=== PATIENT | male | born 1965 | race Two or more races ===

== ENCOUNTER 2017-03-06 08:37 | Emergency (ER) | payer OTHER ==
[2017-03-06] MEDS ORDERED: PROPARACAINE 0.5% 15 ML OPHT DROP ONE (08:48)
[2017-03-06] MEDS ORDERED: FLUORESCEIN SODIUM 1 MG STRIP OP ONE (08:48)
--- NOTE | 2017-03-06 08:48 | EDPHY ---
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 This happened 3 days ago. He did irrigate them at the time but has had persistent pain in the left worse than the right. No vision changes. No discoloration. Denies other injuries. He does not know what the cleaning solution was. REVIEW OF SYSTEMS: Constitutional: denies: chills, fever, recent illness, recent injury EENTM: See HPI Respiratory: denies: cough, shortness of breath Cardiac: denies: chest pain, irregular heart rate, lightheadedness, palpitations Gastrointestinal/Abdominal: denies: abdominal pain, diarrhea, nausea, vomiting, blood streaked stools Genitourinary: denies: dysuria, frequency, hematuria, pain Musculoskeletal: denies: joint pain, muscle pain Skin: denies: lesions, rash, jaundice, bruising Neurological: denies: headache, numbness, paresthesia, tingling, dizziness, weakness Hematologic/Lymphatic: denies: blood clots, easy bleeding, easy bruising Immunologic/allergic: denies: HIV/AIDS, transplant EXAM: GENERAL: Well-appearing, well-nourished and in no acute distress. HEAD: Atraumatic, normocephalic. EYES: See diagram ENT: TMs normal, nares patent, oropharynx clear without exudates. Moist mucous membranes. NECK: Normal range of motion, supple without lymphadenopathy or JVD. LUNGS: Breath sounds clear to auscultation bilaterally and equal. No wheezes rales or rhonchi. HEART: Regular rate and rhythm without murmurs, rubs or gallops. ABDOMEN: Soft, nontender, normoactive bowel sounds. No guarding, no rebound. No masses appreciated. BACK: No CVA tenderness, no spinal tenderness, step-offs or deformities EXTREMITIES: Normal range of motion, no pitting or edema. No clubbing or cyanosis. NEUROLOGICAL: Cranial nerves II through XII grossly intact. Normal speech, normal gait. 5/5 strength, normal movement in all extremities, normal sensation PSYCH: Normal mood, normal affect. SKIN: Warm, dry, normal turgor, no visible rashes or lesions. Source: Patient, Family Exam Limitations: Language barrier (Family interpreting) - Medical/Surgical History Hx Asthma: No Hx Chronic Respiratory Disease: No Hx Diabetes: No Hx Cardiac Disease: No Hx Renal Disease: No Hx Cirrhosis: No Hx Alcoholism: No - Family History Significant Family History: No pertinent family hx - Social History Smoking Status: Never smoked Drug Use: None Constitutional: Initial Vital Signs Temperature (C) 36.3 C 03/06/17 08:55 Heart Rate 95 03/06/17 08:55 Respiratory Rate 18 03/06/17 08:55 Blood Pressure 159/96 H 03/06/17 08:55 O2 Sat (%) 96 03/06/17 08:55 O2 Delivery Mode Room Air Allergies/Adverse Reactions: No Known Allergies Allergy (Unverified 03/06/17 08:53) Home Medications: Medication Instructions Recorded Amlodipine Besylate 03/06/17 Ofloxacin 0.3% [Ocuflox 0.3%] 2 drops OP QID #1 opht.btl 03/06/17 ED Images - Head Eyes Right/Left: 1 - Mild burn 2 - Mild burn 3 - Mild burn Medical Decision Making ED Course/Re-evaluation: The patient has mild caballero to both cornea. They did not appear to involve the central visual axis. I will start him on antibiotic drops and have him follow up with Ophthalmology. I instructed him not were contacts. He understands and agrees with this plan. His family has been interpreting and they declined phone site interpreter. Differential Diagnosis: Partial list of the Differential diagnosis considered include but were not limited to; corneal abrasion, corneal burn and although unlikely based on the history and physical exam, I also considered foreign body, infection, iritis. I discussed these differential diagnoses and the plan with the patient as well as the usual and expected course. The patient understands that the diagnosis is provisional and that in medicine we are not always correct and that further workup is often warranted. Usual and customary warnings were given. All of the patient's questions were answered. The patient was instructed to return to the emergency department should the symptoms at all worsen or return, otherwise to followup with the physician as we discussed. Departure - Departure Disposition: Home, Routine, Self-Care Clinical Impression: Corneal chemical burn Qualifiers: Encounter type: initial encounter Laterality: unspecified laterality Qualified Code(s): T26.60XA - Corrosion of cornea and conjunctival sac, unspecified eye, initial encounter Condition: Fair Instructions: Chemical Eye Caballero (ED) Referrals: UNKNOWN,UNKNOWN [Other] - As per Instructions Sandor Bass MD [Medical Doctor] - 2-3 days, call for appt. Prescriptions: Ofloxacin 0.3% [Ocuflox 0.3%] 2 drops OP QID #1 opht.btl
[2017-03-06 08:58] VITALS: BP 159/96; PULSE 95; RESP 18; TEMP 97.3; O2SAT 96
== END 2017-03-06 09:32 | disposition home or self-care (01) ==
LOC: CED 08:37
DX: T55.1X1A Toxic effect of detergents, accidental (unintentional), initial encounter (principal); T26.61XA Corrosion of cornea and conjunctival sac, right eye, initial encounter; T26.62XA Corrosion of cornea and conjunctival sac, left eye, initial encounter; X58.XXXA Exposure to other specified factors, initial encounter